=== PATIENT | female | born 1950 | race Caucasian/White ===

== ENCOUNTER 2018-08-24 10:41 | Outpatient (CLI) | payer MEDICARE ==
--- NOTE | 2018-08-24 12:08 | MRI ---
LUMBAR SPINE MRI WITHOUT CONTRAST: Date: 08/24/18 HISTORY: Low back pain, radiating down left leg, left hip and left groin. Difficulty sitting for long periods of time. COMPARISON: None. TECHNIQUE: MRI lumbar spine is performed without intravenous Gadolinium administration. Multisequential, multipl nathan imaging is performed. FINDINGS: 6.7 mm of anterolisthesis of L2 upon L3, 5.7 mm of anterolisthesis of L3 upon L4, and 2.7 mm of retro listhesis of L4 upon L5. There is a horizontally oriented area of sclerosis with associated T2 and ST IR hyperintensity suggesting a healing fracture of the L4 vertebral body without significant loss of vertebral body height or retropulsion. There are Type I and Type II Modic changes at L4-5. There are Type II Modic changes at L5-S1. There is a nonspecific T1 and T2 hypointense lesion in the right iliac wing measuring 1.0 cm. Mild atrophy of the left psoas muscle. Visualized solid organs have appropriate signal intensity. Pos sible cyst in the right hepatic lobe, incompletely evaluated, measuring 1.5 cm. Conus medullaris term inates at the inferior aspect of L1. T12-L1: Adequate disc hydration. No significant central canal stenosis. Foramina are patent. L1-L2: Adequate disc hydration. No significant central canal stenosis. Neural foramina are patent bilaterall y. L2-L3: Desiccation with mild loss of disc space height. Generalized disc bulge, ligamentum flavum thickening , and facet hypertrophy result in mild to moderate central canal stenosis. Mild right and left forami nal narrowing. There is an intrinsic T1 hypointense, T2 hyperintense lesion adjacent to the left face t joint measuring 5.0 mm. Synovial cyst is favored. No significant associated mass effect. There may be a second smaller adjacent synovial cyst. Posterior to the left facet joint at L2-L3 is a third syn ovial cyst measuring 5.0 mm. L3-L4: Desiccation with mild loss of disc space height. Generalized disc bulge, ligamentum flavum thickening , and facet hypertrophy result in moderate central canal stenosis. Neural foramina are patent bilater ally. L4-L5: Desiccation with mild loss of disc space height. There is a broad based disc bulge. Mild central wesly l stenosis. There is mild facet hypertrophy. Mild to moderate right and moderate to severe left neura l foraminal narrowing. L5-S1: Desiccation with moderate loss of disc space height. Generalized disc bulge does not cause any signif icant stenosis of the thecal sac. Disc material encroaches on both subarticular zones. No significant obscuration of the traversing right S1 nerve root. There is some mass effect without obscuration of the traversing left S1 nerve root. Moderate to severe right and left foraminal narrowing. 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 IMPRESSION: 1. Spondylolisthesis as above. 2. Healing fracture of the L4 vertebral body without significant loss of vertebral body height. 3. Indeterminate T1 and T2 hypointense lesion in right iliac wing. Dedicated sacral MRI is recommend ed with and without contrast. 4. Degenerative changes of lumbar spine as detailed above. There are varying degrees of central wesly l stenosis and foraminal narrowing as detailed above. Code T POS: JANENE
--- NOTE | 2018-08-24 12:22 | RAD ---
LUMBAR SPINE SERIES 3 VIEWS WITH FLEXION AND EXTENSION: Date: 08/24/18 HISTORY: Low back pain radiating to left hip. FINDINGS: The bones are demineralized. The vertebral bodies maintain normal height. There is marked disc narrow ing at L4-5 and L5-S1. There is a Grade I spondylolisthesis of L3 on L4, not definitely changed betwe en the flexion and extension views. Degenerative facet changes are noted. IMPRESSION: Arthritic changes of the spine. POS: JANENE
== END 2018-08-24 10:42 | disposition home or self-care (01) ==
LOC: TBSIIMAG 10:41
PROVIDERS: ATTEND Physician Assistant Surgical
DX: M51.16 Intervertebral disc disorders with radiculopathy, lumbar region (principal); M47.26 Other spondylosis with radiculopathy, lumbar region; M43.16 Spondylolisthesis, lumbar region; S32.049D Unspecified fracture of fourth lumbar vertebra, subsequent encounter for fracture with routine healing; M99.83 Other biomechanical lesions of lumbar region; M48.061 Spinal stenosis, lumbar region without neurogenic claudication
CPT/HCPCS: 72100; 72148

== ENCOUNTER 2018-10-06 14:10 | Outpatient (CLI) | payer MEDICARE ==
--- NOTE | 2018-10-06 15:02 | RAD ---
LEFLT HIP RADIOGRAPHS TWO VIEWS: Date: 10-06-18 Provided Clinical History: Left hip pain. FINDINGS: Comparison is made with the study dated 06-30-18. Degenerative changes involving the left hip are again seen with prominent superior left hip joint spa ce loss. There is no evidence for fracture or other acute osseous abnormality. There is flattening of the superior weight bearing portions of the femoral head which may reflect sequellae of prior osteon ecrosis with subchondral collapse. IMPRESSION: Prominent degenerative arthrosis of the left hip as above. POS: TPC
== END 2018-10-06 14:11 | disposition home or self-care (01) ==
LOC: RAD 14:10
PROVIDERS: ATTEND Specialist
DX: M25.552 Pain in left hip (principal); M16.12 Unilateral primary osteoarthritis, left hip

== ENCOUNTER 2018-12-21 14:34 | Outpatient (CLI) | payer MEDICARE, OTHER ==
--- NOTE | 2018-12-21 16:16 | BD ---
BONE DENSITOMETRY USING DEXA: HISTORY: Postmenopausal screening for osteoporosis. FINDINGS: LUMBAR SPINE BMD (g/cm2) T-SCORE Z-SCORE L1 0.946 -0.4 1.5 L2 0.141 1.0 3.1 L3 1.069 -0.1 2.0 L4 1.267 1.9 4.1 TOTAL 1.101 0.5 2.6 NECK 0.856 0.1 1.8 TOTAL 0.943 0.0 1.5 IMPRESSION: Normal bone mineral density. No evidence of osteopenia/osteoporosis. POS: C
== END 2018-12-21 14:35 | disposition home or self-care (01) ==
LOC: BICMAMMO 14:34
PROVIDERS: ATTEND Obstetrics & Gynecology
DX: Z12.31 Encounter for screening mammogram for malignant neoplasm of breast (principal); Z13.820 Encounter for screening for osteoporosis; R92.1 Mammographic calcification found on diagnostic imaging of breast
CPT/HCPCS: 77063; 77067; 77080

== ENCOUNTER 2019-01-21 05:34 | Outpatient (CLI) | payer MEDICARE ==
[2019-01-21 13:09] LABS: #Eosinphils 0.2 thou/uL (0.0-0.7); #Monocytes 0.5 thou/uL (0.11-0.59); #Neutrophils 4.7 thou/uL (1.40-6.50); %Basophils 0.6 % (0.0-1.0); %Eosinophils 2.6 % (0.0-10.0); %Lymphocytes 26.9 % (21.0-51.0); %Monocytes 7.2 % (0.0-10.0); %Neutrophils 62.6 % (42.0-75.0); Hemoglobin 15.3 g/dL (12.0-16.0); Mean Corpuscular HGB CONC 32.7 g/dL (32.0-36.0); Mean Corpuscular Hemoglobin 29.6 pg (27.0-31.0); Mean Corpuscular Volume 90.7 fL (78.0-98.0); Mean Platelet Volume 6.5 fL (7.4-10.4); Platelet Count 316 thou/uL (130-400); Red Blood Cell (RBC) Count 5.16 mill/uL (4.20-5.40); White Blood Cell (WBC) Count 7.5 thou/uL (4.8-10.8)
[2019-01-21 13:13] LABS: Bilirubin Negative (Negative); Blood, Urine Negative (Negative); Clarity CLEAR (Clear); Glucose, Urine (Dipstick) Negative (Negative); Leukocyte Trace (Negative); Nitrite Negative (Negative); Protein, Urine (Dipstick) Negative (Neg-Trace); Specific Gravity, Urine 1.007 (1.002-1.036); Urobilinogen 0.2 mg/dL (0.2-1.0)
[2019-01-21 13:14] LABS: Prothrombin Time 13.6 SEC (12.0-14.7)
[2019-01-21 13:17] LABS: Bacteria/HPF None Seen HPF (None Seen); Hyaline Casts/LPF 0-3 HYALINE CAST LPF (0-3 Hyaline); Pathc Cast-AUWi Flag 0.54 (0-2.49); RBC/HPF 0-3 HPF (0-3); Squamous Epithelial 0-3 HPF (0-3); WBC/HPF 0-3 HPF (0-3)
[2019-01-21 13:42] LABS: Anion Gap 13 mmol/L (10-20); BUN (Urea Nitrogen) 11 mg/dL (9.8-20.1); Calc. Creatinine Clearance 0 mL/min (70-130); Calcium 9.5 mg/dL (7.8-10.44); Carbon Dioxide 28 mmol/L (23-31); Chloride 98 mmol/L (98-107); Estimated GFR-MDRD 83; Glucose 91 mg/dL (80-115); Potassium 4.1 mmol/L (3.5-5.1); Sodium 135 mmol/L (136-145)
--- NOTE | 2019-01-21 20:30 | EKG ---
Test Reason : Blood Pressure : / mmHG Vent. Rate : 078 BPM Atrial Rate : 078 BPM P-R Int : 160 ms QRS Dur : 084 ms QT Int : 368 ms P-R-T Axes : 056 -56 041 degrees QTc Int : 419 ms Normal sinus rhythm Possible Left atrial enlargement Left axis deviation Low voltage QRS Inferior infarct , age undetermined Cannot rule out Anterior infarct , age undetermined Abnormal ECG No previous ECGs available Confirmed by DR. Chyna ISAAC ([id number]) on 01/21/2019 8:30:36 PM Referred By: KAYCEE Confirmed By:DR. Chyna ISAAC
== END 2019-01-21 05:35 | disposition home or self-care (01) ==
LOC: LABBT 05:34
PROVIDERS: ATTEND Orthopaedic Surgery
DX: Z01.818 Encounter for other preprocedural examination (principal); M16.12 Unilateral primary osteoarthritis, left hip
CPT/HCPCS: 80048; 81001; 85025; 85610; 87081; 93005; 93010

== ENCOUNTER 2019-01-21 13:00 | Inpatient (IN) | payer MEDICARE ==
[2019-02-02] MEDS ORDERED: Tranexamic Acid 1,000 MG/10 ML VIAL ONE (05:55)
[2019-02-02] MEDS ORDERED: Sodium Chloride 0.9% 100 ML ONE (05:56)
[2019-02-02] MEDS ORDERED: Vancomycin HCl 1.5 GM in Sodium Chloride 0.9% 250 ML 300 ML IVPB SCH (06:15)
[2019-02-02] MEDS ORDERED: Midazolam HCl 2 mg/2 ml Vial ONE (06:24)
[2019-02-02] MEDS ORDERED: Lidocaine 1% (PF) 30 ML VIAL ONE (06:24)
[2019-02-02] MEDS ORDERED: Fentanyl 100 MCG/2 ML VIAL ONE ×2 (06:24→06:48)
[2019-02-02] MEDS ORDERED: Bupivacaine/Epinephrine 0.25% 30 ML VIAL ONE (06:49)
[2019-02-02] MEDS ORDERED: Zolpidem Tartrate 5 MG TAB PO PRN ×2 (06:56→06:59)
[2019-02-02] MEDS ORDERED: HYDROcodone/Acetaminophen 10/325 mg Tablet PO PRN ×2 (06:56)
[2019-02-02] MEDS ORDERED: diphenhydrAMINE 25 MG CAP PO PRN ×2 (06:56→07:15)
[2019-02-02] MEDS ORDERED: Ondansetron PF 4 MG/2 ML Vial IVP PRN ×2 (06:56→07:15)
[2019-02-02] MEDS ORDERED: Acetaminophen 325 MG TAB PO PRN (06:56)
[2019-02-02] MEDS ORDERED: Fentanyl 100 MCG/2 ML VIAL SLOW IVP PRN ×2 (06:56)
[2019-02-02] MEDS ORDERED: Promethazine HCl 25 MG/ML VIAL IM PRN ×3 (06:56→08:55)
[2019-02-02] MEDS ORDERED: ALPRAZolam 0.5 MG TAB PO PRN (06:59)
[2019-02-02] MEDS ORDERED: Bupivacaine 0.25% 10 ML VIAL EPIDURAL PRN (07:15)
[2019-02-02] MEDS ORDERED: Hydrocerin (Eucerin) Cream 120 gm Jar TOP PRN (07:15)
[2019-02-02] MEDS ORDERED: diphenhydrAMINE 50 MG/ML VIAL IVP PRN (07:15)
[2019-02-02] MEDS ORDERED: Promethazine HCl 25 MG SUPP PR PRN (07:15)
[2019-02-02] MEDS ORDERED: diphenhydrAMINE 50 MG/ML VIAL IM PRN (07:15)
[2019-02-02] MEDS ORDERED: traMADol HCl 50 MG TAB PO PRN (07:15)
[2019-02-02] MEDS ORDERED: fentaNYL Citrate/PF 500 MCG, Bupivacaine 10 ML in Sodium Chloride 0.9% 80 ML EPIDURAL SCH (07:15)
[2019-02-02] MEDS ORDERED: Naloxone HCl 0.4 mg/ml Vial IVP PRN (07:15)
[2019-02-02] MEDS ORDERED: Naloxone HCl 0.4 mg/ml Vial IV PRN (07:15)
[2019-02-02] MEDS ORDERED: Ondansetron HCl/PF 4 MG/2 ML Vial IVP PRN (08:55)
[2019-02-02] MEDS ORDERED: Promethazine HCl 25 MG/ML VIAL SLOW IVP PRN (08:55)
[2019-02-02] MEDS: Sodium Chloride 0.9% 1,000 ML IV SCH ×2 (10:03→17:52)
[2019-02-02] MEDS: Aspirin 81 mg Enteric Coated Tablet PO SCH ×2 (10:03→21:04)
[2019-02-02 10:51] VITALS: BMI 29.7
--- NOTE | 2019-02-02 10:54 | RAD ---
LEFT HIP TWO VIEWS: 02/02/2019 HISTORY: Evaluate left hip following arthroplasty. COMPARISON: 10/06/2018 FINDINGS: The patient has undergone interval left total hip arthroplasty with no evidence for hardware failure or acute fracture/dislocation. Foci of soft tissue gas noted proximal and lateral to the left greate r trochanter, consistent with recent surgery. IMPRESSION: Left hip arthroplasty with no adverse features seen. POS: LOAN
--- NOTE | 2019-02-02 12:01 | CON ---
DATE OF CONSULTATION: PRIMARY CARE PROVIDER: Guille Hughes MD HISTORY OF PRESENT ILLNESS: The patient is postop left total hip replacement for severe osteoarthritis. She had marked difficulty progressive with mobilizing for the past 2 years. Postoperatively, she has no chest pain, shortness of breath, nausea, fever, or chills. PAST MEDICAL HISTORY: Pertinent only for hypothyroidism, currently treated with levothyroxine 88 mcg a day. MEDICATIONS: 1. She also takes ibuprofen 600 mg h.s. p.r.n. and gabapentin 300 mg h.s. for her pain. 2. She also has Ambien 10 mg h.s. for sleep. 3. Xanax 0.5 mg p.o. twice a day as needed for anxiety. ALLERGIES: NO KNOWN DRUG ALLERGIES. PAST SURGICAL HISTORY: None. FAMILY HISTORY: Father at 93. He had a skin cancer removed from the top of his head. Mother at 89 of dementia. SOCIAL HISTORY: . Full code status. Makenzie Durán is her daughter and surrogate decision maker. She does not smoke. Uses occasional alcohol. REVIEW OF SYSTEMS: GENERAL: No headaches, dizziness, or fainting. HEENT: Eyes; no double vision, blurred vision, or flashing light. Ears nose, and throat; no ear pain or drainage. No nasal bleeding. She does have a scratchy throat postop. CARDIAC: No chest pain, orthopnea, or paroxysmal nocturnal dyspnea. RESPIRATIONS: No cough, wheezing, or asthma. GASTROINTESTINAL: No nausea, vomiting, diarrhea, constipation, or abdominal pain. GENITOURINARY: No hematuria or dysuria. MUSCULOSKELETAL: Other than the severe pain in her left hip radiating down towards her left knee, she has no joint or pain complaints. NEUROLOGICAL: No strokes, seizures, or focal weakness. PSYCHIATRIC: No anxiety or depression at this time. She does take a small amount of Xanax as needed for anxiety. SKIN: No bruising, bleeding, or rash. HEME AND LYMPH: No tender or swollen lymph nodes in axilla, inguinal, or cervical area. PHYSICAL EXAMINATION: GENERAL: She is alert, pleasant, cooperative lady, in no distress. VITAL SIGNS: Temperature 96.8, pulse 65, respirations 18, blood pressure 166/71. HEAD, EYES, EARS, NOSE, AND THROAT: Reveal pupils are equal, round, and reactive to light. Extraocular movements are intact. Sclerae are white. Tympanic membranes are clear. Nose is clear. Oral mucous membranes are wet. Dental hygiene is good. NECK: Supple without jugular venous distention, adenopathy, or thyromegaly. CHEST: Clear to auscultation and percussion. HEART: Had a regular rate and rhythm. First and second heart sounds are clear. There are no appreciated murmurs or gallops. ABDOMEN: Soft. Bowel sounds are normal. No hepatosplenomegaly. No mass. No rebound. No bruits. EXTREMITIES: Reveal no cyanosis, clubbing, or edema. SKIN: Warm and dry with a bandage over left hip. PULSES: Carotid, radial, femoral, and dorsalis pedis pulses intact and symmetric. LYMPHATIC SURVEY: Reveal no tender or swollen lymph nodes in the axilla, inguinal, or cervical area. NEUROLOGIC: Cranial nerves II through XII are intact. Moves all extremities. Toes downgoing. LABORATORY DATA: Done preoperatively. CBC normal. PT/INR 1.0. Basic metabolic profile; sodium 135, otherwise normal. EKG, regular sinus rhythm, left axis deviation with Q-waves in III and aVF. She has poor R wave progression in precordial leads reviewed by me. Left hip x-ray, status post left hip arthroplasty reviewed by me. ADMITTING DIAGNOSES: 1. Status post left total hip arthroplasty. 2. Severe osteoarthritis. 3. Hypothyroidism, on therapy. 4. Anxiety. ASSESSMENT: Doing well postoperatively. We will follow with you. Job ID: [id number]
[2019-02-02] MEDS ORDERED: Ondansetron PF 4 MG/2 ML Vial ONE (12:35)
[2019-02-02] MEDS ORDERED: Rocuronium Bromide 10 MG/ML (10ML VIAL) ONE (12:35)
[2019-02-02] MEDS ORDERED: PROPOFOL 200 MG/20 ML VIAL ONE (12:35)
[2019-02-02] MEDS ORDERED: Dexamethasone 20 MG/5 ML VIAL ONE (12:35)
[2019-02-02] MEDS ORDERED: Lidocaine 1% PF 5 ML VIAL ONE (12:35)
[2019-02-02] MEDS ORDERED: Glycopyrrolate 0.2 MG/ML 5 ML SYRINGE ONE (12:35)
[2019-02-02] MEDS: Ketorolac Tromethamine 30 MG/ML VIAL IVP SCH ×2 (12:50→17:54)
--- NOTE | 2019-02-02 12:53 | OP ---
DATE OF PROCEDURE: 02/02/2019 This is Mika Reveles PA-C dictating a report for Ezequiel Bullock MD. PREOPERATIVE DIAGNOSIS: End-stage bicompartmental osteoarthritis, left knee. POSTOPERATIVE DIAGNOSIS: End-stage bicompartmental osteoarthritis, left knee. PROCEDURE PERFORMED: Press-fit left total hip arthroplasty. SURGEON: Ezequiel Bullock MD [employer] MACHINE OPERATOR: Mika Reveles PA-C ANESTHESIA: General via endotracheal tube augmented with indwelling epidural. COMPONENTS USED: [employer] Accolade press-fit size 3.5 hip stem with a Trident PSL 50 mm cluster press-fit acetabular shell, 10-degree polyethylene fixed-bearing insert, and a 36 mm +5 neck length ceramic head. ESTIMATED BLOOD LOSS: 200 mL. INPUT: 900 mL of crystalloid. OUTPUT: 250 mL of clear yellow urine. FINDINGS: End-stage severe degenerative bicompartmental disease, [id number] arthrosis, periarticular osteophyte formation, large serous effusion, hypertrophic synovium with significant evidence of synovitis. DRAINS: None. SPECIMENS: None. COMPLICATIONS: None. COUNTS: Correct. INDICATION FOR SURGERY: Kamla is a 68-year-old white female, who has had progressive left hip, groin, and thigh pain and problem with standing and walking for the last 5 to 7 years. She has failed conservative management and elected to proceed with total hip arthroplasty for definitive treatment of pain. PROCEDURE IN DETAIL: After informed consent was obtained in the preoperative holding area, the patient was taken to the operative suite where general anesthesia was induced. The patient was then positioned in the lateral decubitus position. The hip was then prepped and draped in usual sterile fashion. The patient received preoperative antibiotics. Prior to incision, time-out was called and all members of the surgical team agreed upon site, surgeon, and patient. After this, a longitudinal incision was made directly over the trochanter, noted by palpation extending 2 fingerbreadths above and below the trochanter. The deeper subcutaneous layer was undermined with Bovie electrocautery. The iliotibial band was encountered and incised sharply and the plane below this was developed bluntly. A Charnley retractor was placed to hold this opened. The lateral aspect of the trochanter and the abductor muscles were encountered and then reflected anteriorly off the trochanter using Bovie electrocautery. Once this was completed, the anterior capsule was then encountered and identified and copious capsulotomy was carried out, exposing the femoral neck and head. Dislocation maneuver was then performed and an in situ provisional neck cut was then made using the oscillating saw. Attention was then turned to acetabular preparation. Sequential reaming was carried out up to the appropriate diameter and a trial was then malleted into place with good firm resistance and no pullout. The permanent acetabular shell was then malleted squarely into place, as was the appropriate liner. Once completed, the wound was copiously irrigated and attention was then turned to femoral preparation. Flexion and external rotation were performed of the exposed thigh and femoral elevators were then placed at the proximal aspect of the wound. Canal finder was used to establish the length of the canal and sequential reaming was carried out, followed by broaching. Once the appropriate stability was established with the trial broaches with flexion, extension and rotational stability, we did trial with neutral and 2 mm offset incremental necks. Once the appropriate size was decided upon, with good stability noted with flexion, extension, internal and external rotation and shuck being negative, we removed the femoral trial broach and malletted into place the permanent prosthesis with good firm fit, which was also stable to rotation. Again, the hip felt very stable to flexion, extension, internal and external rotation. Leg lengths appeared near anatomic clinically and we were quite happy with prosthesis placement. Copious irrigation was then carried out through the entirety of the wound. Primary closure of the abductors was accomplished with interrupted #2 Vicryl [id number] stitches and the IT band was then closed with interrupted #2 Vicryl, oversewn with a #2 running barbed Quill stitch. Subcutaneous fascia was closed with running barbed Quill stitch and a subcuticular Monocryl barbed Quill stitch was used for skin closure and augmented with skin cement. A sterile dressing was applied. The procedure was terminated without any complication. All counts were correct. The patient was awakened in the operative suite and taken to the recovery room in stable condition. Job ID: [id number]
[2019-02-02] MEDS ORDERED: Ketorolac Tromethamine 30 MG/ML VIAL IVP SCH (14:00)
[2019-02-02] MEDS: CEFAZOLIN 2 GM in Premix Bag 1 BAG IVPB SCH ×2 (14:45→21:14)
[2019-02-02] MEDS: Gabapentin 300 MG CAP PO SCH (21:04)
[2019-02-02] MEDS: Zolpidem Tartrate 5 MG TAB PO PRN (22:27)
[2019-02-03] MEDS: Ketorolac Tromethamine 30 MG/ML VIAL IVP SCH ×6 (00:42→23:37)
[2019-02-03] MEDS: HYDROcodone/Acetaminophen 5/325 mg Tablet PO PRN ×3 (00:42→17:24)
[2019-02-03] MEDS: Sodium Chloride 0.9% 1,000 ML IV SCH ×3 (02:30→21:36)
[2019-02-03] MEDS: Levothyroxine Sodium 88 MCG TAB PO SCH (05:54)
[2019-02-03 06:03] LABS: Hemoglobin 11.3 g/dL (12.0-16.0); Mean Corpuscular HGB CONC 32.6 g/dL (32.0-36.0); Mean Corpuscular Hemoglobin 30.2 pg (27.0-31.0); Mean Corpuscular Volume 92.6 fL (78.0-98.0); Mean Platelet Volume 6.5 fL (7.4-10.4); Platelet Count 215 thou/uL (130-400); RBC Distribution Width 12.7 % (11.5-14.5); Red Blood Cell (RBC) Count 3.73 mill/uL (4.20-5.40); White Blood Cell (WBC) Count 9.1 thou/uL (4.8-10.8)
[2019-02-03] MEDS: Ferrous Gluconate 324 MG TAB PO SCH ×2 (09:59→17:24)
[2019-02-03] MEDS: Senokot S 8.6-50 MG TAB PO SCH ×2 (09:59→20:00)
[2019-02-03] MEDS: Aspirin 81 mg Enteric Coated Tablet PO SCH ×2 (09:59→20:00)
[2019-02-03] MEDS: Multivitamin W/ Minerals 1 TAB PO SCH (09:59)
--- NOTE | 2019-02-03 12:31 | PRG ---
DATE OF SERVICE: 02/03/2019 SUBJECTIVE: Kamla is a 68-year-old white female, who is postop day 1 from left total hip arthroplasty. She is doing very well. Pain is relatively well controlled compared to her preoperative state. She has no complaints currently. OBJECTIVE: VITAL SIGNS: Temperature 98.1, pulse 95, respiratory rate 14, and blood pressure 119/78. GENERAL: She is alert, oriented to person, place, time and situation, grossly nonfocal. EXTREMITIES: Visual inspection of the left lower extremity demonstrates her leg lengths to be near symmetric. There is no strikethrough at the incision and she is neurovascularly intact in the left lower extremity. LABORATORY DATA: Hemoglobin and hematocrit of 11.3 and 34.6. IMPRESSION: 1. This is a 68-year-old white female, postop day 1 left total hip arthroplasty. 2. Mild postoperative hemorrhagic anemia, asymptomatic. PLAN: Continue current care. Probable transfer to a skilled facility on . Job ID: [id number]
[2019-02-03] MEDS ORDERED: Fentanyl 5 mcg/Bup 0.075% Cadd 100 ML EPIDURAL SCH (18:30)
[2019-02-03] MEDS: Gabapentin 300 MG CAP PO SCH (20:00)
[2019-02-03] MEDS: Zolpidem Tartrate 5 MG TAB PO PRN (21:51)
[2019-02-04 04:53] LABS: Hemoglobin 11.1 g/dL (12.0-16.0); Mean Corpuscular HGB CONC 32.8 g/dL (32.0-36.0); Mean Corpuscular Hemoglobin 30.5 pg (27.0-31.0); Mean Platelet Volume 6.7 fL (7.4-10.4); Platelet Count 215 thou/uL (130-400); RBC Distribution Width 12.9 % (11.5-14.5); Red Blood Cell (RBC) Count 3.63 mill/uL (4.20-5.40); White Blood Cell (WBC) Count 10.3 thou/uL (4.8-10.8)
[2019-02-04] MEDS: Ketorolac Tromethamine 30 MG/ML VIAL IVP SCH (05:38)
[2019-02-04] MEDS: Levothyroxine Sodium 88 MCG TAB PO SCH (05:38)
[2019-02-04] MEDS: Ferrous Gluconate 324 MG TAB PO SCH ×2 (08:35→17:17)
[2019-02-04] MEDS: Senokot S 8.6-50 MG TAB PO SCH ×2 (08:36→19:45)
[2019-02-04] MEDS: Multivitamin W/ Minerals 1 TAB PO SCH (08:36)
[2019-02-04] MEDS: Aspirin 81 mg Enteric Coated Tablet PO SCH ×2 (08:36→19:45)
[2019-02-04] MEDS: HYDROcodone/Acetaminophen 5/325 mg Tablet PO PRN ×2 (08:56→14:34)
[2019-02-04] MEDS: Sodium Chloride 0.9% 1,000 ML IV SCH ×2 (09:29→18:09)
--- NOTE | 2019-02-04 09:38 | PRG ---
DATE OF SERVICE: 02/04/2019 SUBJECTIVE: Kamla is a 68-year-old white female, who is postop day #2 from left total hip arthroplasty. She doing relatively well. Pain is controlled and I believe she is planning on going to nursing home facility after this day. OBJECTIVE: VITAL SIGNS: Temperature 98.2, pulse 88, respiratory rate 20, and blood pressure is 133/84. GENERAL: She is alert and oriented to person, place, time, and situation. NEUROLOGICAL: Grossly nonfocal with no strike through her incision. She is neurovascularly intact in both extremities. IMPRESSION: A 68-year-old white female, postop day #1, left total hip arthroplasty. Postoperative hemorrhagic asymptomatic anemia. PLAN: Continue current care. Transfer tomorrow. Job ID: [id number]
[2019-02-04] MEDS ORDERED: HYDROcodone/Acetaminophen 10/325 mg Tablet PO PRN (17:08)
[2019-02-04] MEDS: Gabapentin 300 MG CAP PO SCH (19:44)
[2019-02-04] MEDS: traMADol HCl 50 MG TAB PO PRN (19:44)
[2019-02-04] MEDS: ALPRAZolam 0.5 MG TAB PO PRN (21:49)
[2019-02-04] MEDS: Zolpidem Tartrate 5 MG TAB PO PRN (21:50)
[2019-02-05] MEDS: traMADol HCl 50 MG TAB PO PRN (01:56)
[2019-02-05] MEDS: Sodium Chloride 0.9% 1,000 ML IV SCH (05:13)
[2019-02-05] MEDS: Levothyroxine Sodium 88 MCG TAB PO SCH (05:19)
[2019-02-05] MEDS: Ferrous Gluconate 324 MG TAB PO SCH (08:56)
[2019-02-05] MEDS: Multivitamin W/ Minerals 1 TAB PO SCH (08:56)
[2019-02-05] MEDS: Aspirin 81 mg Enteric Coated Tablet PO SCH (08:56)
[2019-02-05] MEDS: HYDROcodone/Acetaminophen 10/325 mg Tablet PO PRN ×2 (08:57→14:15)
[2019-02-05] MEDS: Senokot S 8.6-50 MG TAB PO SCH (08:57)
[2019-02-05 12:41] VITALS: BP 116/73; TEMP 97.9
[2019-02-05] MEDS: ALPRAZolam 0.5 MG TAB PO PRN (14:14)
== END 2019-02-05 15:30 | DRG 470 ==
LOC: SJJU 02-02 05:44
PROVIDERS: ADMIT Orthopaedic Surgery; ATTEND Orthopaedic Surgery
PROC: 0SRB04A Replacement of Left Hip Joint with Ceramic on Polyethylene Synthetic Substitute, Uncemented, Open Approach (ICD-10-PCS; principal; 2019-02-02)
DX: M16.12 Unilateral primary osteoarthritis, left hip (principal); D62 Acute posthemorrhagic anemia; E03.9 Hypothyroidism, unspecified; F41.9 Anxiety disorder, unspecified
CPT/HCPCS: 36415; 85027; 86850; 86900; 86901; J1100; J1885; J2001; J2250; J2405; J2704; J3010; J3370; J3490; J7050

== ENCOUNTER 2023-02-11 12:22 | Outpatient (CLI) | payer MEDICARE | END 2023-02-11 12:23 | disposition home or self-care (01) | LOC: TBSIIMAG 12:22 | PROVIDERS: ATTEND Specialist | DX: M51.16 Intervertebral disc disorders with radiculopathy, lumbar region (principal); S32.011A Stable burst fracture of first lumbar vertebra, initial encounter for closed fracture; M48.061 Spinal stenosis, lumbar region without neurogenic claudication | CPT/HCPCS: 72148 ==

== ENCOUNTER 2023-02-25 12:16 | Outpatient (CLI) | payer MEDICARE | END 2023-02-25 12:17 | disposition home or self-care (01) | LOC: CT 12:16 | PROVIDERS: ATTEND Specialist | DX: S32.01 Fracture of first lumbar vertebra (principal); M48.061 Spinal stenosis, lumbar region without neurogenic claudication; M51.36 Other intervertebral disc degeneration, lumbar region; M51.37 Other intervertebral disc degeneration, lumbosacral region; M48.07 Spinal stenosis, lumbosacral region | CPT/HCPCS: 72131 ==

== ENCOUNTER 2023-03-25 12:48 | Outpatient (CLI) | payer MEDICARE | END 2023-03-25 12:49 | disposition home or self-care (01) | LOC: BICMAMMO 12:48 | PROVIDERS: ATTEND Surgery | DX: M81.0 Age-related osteoporosis without current pathological fracture (principal); S34.109A Unspecified injury to unspecified level of lumbar spinal cord, initial encounter | CPT/HCPCS: 77080 ==

== ENCOUNTER 2023-05-23 15:00 | Outpatient (CLI) | payer MEDICARE ==
[~2023-05-23 15:00] MED LIST: Iopamidol 370 76% 100 ML VIAL ONE
== END 2023-05-23 15:01 | disposition home or self-care (01) ==
LOC: CT 15:00
PROVIDERS: ATTEND Surgery
DX: S34.109A Unspecified injury to unspecified level of lumbar spinal cord, initial encounter (principal); M81.0 Age-related osteoporosis without current pathological fracture; M47.814 Spondylosis without myelopathy or radiculopathy, thoracic region; S32.019A Unspecified fracture of first lumbar vertebra, initial encounter for closed fracture; S32.039A Unspecified fracture of third lumbar vertebra, initial encounter for closed fracture; M47.816 Spondylosis without myelopathy or radiculopathy, lumbar region; D73.89 Other diseases of spleen
CPT/HCPCS: 71260; 74177; 82565; Q9967